=== PATIENT | female | born 2000 | race Caucasian/White ===

== ENCOUNTER 2021-01-24 14:02 | Inpatient (IN) ==
[2021-01-24] MEDS ORDERED: NALOXONE HCL 0.4 MG/1 ML VIAL/CARP IV STA (14:08)
[2021-01-24] MEDS ORDERED: RAPID SEQUENCE INDUCTION BAG ONE (14:11)
[2021-01-24] MEDS ORDERED: HALOPERIDOL LACTATE 5 MG/ML 1 ML VIAL ONE (14:15)
[2021-01-24] MEDS ORDERED: SODIUM CHLORIDE 0.9% 1000ML 2,000 ML IV SCH (14:15)
[2021-01-24] MEDS ORDERED: LORazepam 2 MG/4 ML VIAL ONE (14:15)
[2021-01-24] MEDS ORDERED: LORazepam 2 MG/4 ML VIAL IV STA ×2 (14:21→14:29)
[2021-01-24] MEDS ORDERED: BENZTROPINE MESYLATE 1 MG/ML 2 ML AMP IV STA (14:21)
[2021-01-24 14:41] LABS: Basophils # (auto) 0.01 K/uL (0-0.2); Basophils % (auto) 0.1 %; Eosinophils # (auto) 0.03 K/uL (0-0.5); Eosinophils % (auto) 0.4 %; Hematocrit (blood only) 40.2 % (37-47); Immature Granulocytes # (auto) 0.01 K/uL (0.00-0.02); Immature Granulocytes % (auto) 0.1 %; Lymphocytes # (auto) 2.32 K/uL (1.2-3.4); Lymphocytes % (auto) 31.6 %; Mean Corpuscular Hemoglobin 28.9 pg (25-34); Mean Corpuscular Hgb Conc 34.8 g/dL (32-36); Mean Corpuscular Volume 82.9 fL (80-100); Mean Platelet Volume 10.9 fL (7.4-10.4); Monocytes # (auto) 0.39 K/uL (0.11-0.59); Monocytes % (auto) 5.3 %; Neutrophils # (auto) 4.59 K/uL (1.4-6.5); Neutrophils % (auto) 62.5 %; Platelet Count 233 K/uL (130-400); RDW Coefficient of Variation 11.9 % (11.5-14.5); Red Blood Count 4.85 M/uL (4.2-5.4); White Blood Count 7.35 K/uL (4.8-10.8)
[2021-01-24] MEDS ORDERED: HALOPERIDOL LACTATE 5 MG/ML 1 ML VIAL IV STA (14:41)
--- NOTE | 2021-01-24 14:56 | Electrocardiogram Report ---
Test Reason : Blood Pressure : / mmHG Vent. Rate : 155 BPM Atrial Rate : 155 BPM P-R Int : 138 ms QRS Dur : 076 ms QT Int : 244 ms P-R-T Axes : 058 075 045 degrees QTc Int : 392 ms Sinus tachycardia Otherwise normal ECG No previous ECGs available Confirmed by Festus Mosley ([id number]) on 01/24/2021 2:56:07 PM Referred By: ED Confirmed By:Favio Mosley
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
[2021-01-24 15:21] LABS: Appearance Urine Clear (Clear); Bacteria Urine Automated Negative (Negative); Bilirubin Urine Negative (Negative); Blood Urine 3+ (Negative); Cast Urine Automated 0 /lpf (0-5); Color Urine Yellow; Epithelial Cell Urine Auto 20-30 /lpf (0-5); Glucose Urine UA Negative (Negative); Ketones Urine Negative (Negative); Leukocyte Esterase Urine Negative (Negative); Nitrite Urine Negative (Negative); Protein Urine Negative (Negative); RBC Urine Automated >30 /hpf (0-4); Specific Gravity Urine 1.015 (1.000-1.030); Urobilinogen Urine Negative (Negative)
[2021-01-24 15:31] LABS: Acetaminophen < 2 ug/ml (10-30)
[2021-01-24 15:32] LABS: Salicylate < 1.7 mg/dl (2.8-20)
[2021-01-24 15:42] LABS: Alanine Aminotransferase 16 U/L (12-78); Albumin Level 3.8 gm/dl (3.4-5.0); Alkaline Phosphatase 56 U/L (45-117); Aspartate Aminotransferase 10 U/L (15-37); BUN Creatinine Ratio 8.2 (10-20); Bilirubin,Total 0.4 mg/dl (0.2-1); Blood Urea Nitrogen 7 mg/dl (7-18); Calcium 9.4 mg/dl (8.5-10.1); Carbon Dioxide 23 mmol/L (21-32); Chloride 109 mmol/L (98-107); Creatine Kinase 147 U/L (26-192); Creatinine Clr Calc Pharmacy 107.5 ml/min; Est GFR (African American) 110.4; Est GFR (Non-African American) 95.3; Globulin 3.8 gm/dl (2.5-4.0); Glucose 123 mg/dl (70-99); Magnesium 2.1 mg/dl (1.8-2.4); Potassium 3.9 mmol/L (3.5-5.1); Sodium 142 mmol/L (136-145); Total Protein 7.6 gm/dl (6.4-8.2); Troponin I < 0.015 ng/ml (0-0.045)
[2021-01-24 15:47] LABS: Amphetamines+Metham, Urine Neg (Neg); Barbiturates, Urine Neg (Neg); Benzodiazepine, Urine Neg (Neg); Cocaine, Urine Neg (Neg); MDMA (Ecstacy), Urine Neg (Neg); Methadone, Urine Neg (Neg); Opiate, Urine Neg (Neg); Phencyclidine, Urine Neg (Neg)
[2021-01-24 15:48] LABS: Pregnancy Test, Serum Negative (Negative)
[2021-01-24] MEDS ORDERED: OPTIRAY 320 100ml IV ONE (15:52)
--- NOTE | 2021-01-24 16:09 | CT Scan Report ---
CT OF THE HEAD WITHOUT CONTRAST CLINICAL HISTORY: Altered mental status. COMPARISON STUDY: Head CT June 27, 2019. MRI of the brain June 28, 2019. TECHNIQUE: Helical axial images of the head were obtained without IV contrast. Automated exposure con trol was utilized for the study. A dose lowering technique was utilized adhering to the principles o f ALARA. FINDINGS: No acute intracranial hemorrhage, midline shift or mass effect is present. The ventricular system is unremarkable. The basal cisterns are patent. No extra-axial collections are present. There are no findings to suggest acute dural sinus thrombosis or acute territorial infarct. No significant calvarial abnormalities are present. There is no calvarial fracture. Visualized portions of the sinus es and mastoid air cells are clear. IMPRESSION: No acute intracranial findings. ACT 112: Negative or not required by law. Electronically signed by: Chava Ybarra M.D. 01/24/2021 4:04 PM
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
[2021-01-24 16:32] LABS: Influenza A virus by PCR Negative (Neg); Influenza B virus by PCR Negative (Neg); RSV by PCR Negative (Neg); SARS CoV2 RNA(COVID-19) InHosp NEGATIVE (Negative)
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
[2021-01-25] MEDS ORDERED: ACETAMINOPHEN 1000 MG/100 ML IV IV STA (16:08)
[2021-01-25] MEDS ORDERED: SODIUM CHLORIDE 0.9% 1000ML 500 ML IV ONE ×2 (16:08→19:19)
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
[2021-01-25 19:43] LABS: Basophils # (auto) 0.01 K/uL (0-0.2); Basophils % (auto) 0.1 %; Eosinophils # (auto) 0.05 K/uL (0-0.5); Eosinophils % (auto) 0.4 %; Hemoglobin 13.2 g/dL (12.0-16.0); Immature Granulocytes # (auto) 0.02 K/uL (0.00-0.02); Immature Granulocytes % (auto) 0.2 %; Lymphocytes # (auto) 1.68 K/uL (1.2-3.4); Lymphocytes % (auto) 14.2 %; Mean Corpuscular Hgb Conc 35.7 g/dL (32-36); Mean Corpuscular Volume 84.1 fL (80-100); Mean Platelet Volume 10.3 fL (7.4-10.4); Monocytes # (auto) 0.89 K/uL (0.11-0.59); Monocytes % (auto) 7.5 %; Neutrophils # (auto) 9.16 K/uL (1.4-6.5); Neutrophils % (auto) 77.6 %; Platelet Count 220 K/uL (130-400); RDW Coefficient of Variation 12.3 % (11.5-14.5); RDW Standard Deviation 37.8 fL (36.4-46.3); White Blood Count 11.81 K/uL (4.8-10.8)
[2021-01-25 20:05] LABS: Albumin Level 3.4 gm/dl (3.4-5.0); BUN Creatinine Ratio 8.4 (10-20); Calcium 8.8 mg/dl (8.5-10.1); Creatinine Clr Calc Pharmacy 103.9 ml/min; Est GFR (Non-African American) 91.5; Potassium 3.7 mmol/L (3.5-5.1)
[2021-01-25] MEDS ORDERED: ONDANSETRON INJ 2 MG/ML 2 ML VIAL IV STA (20:06)
[2021-01-25 20:08] LABS: Bilirubin,Total 0.5 mg/dl (0.2-1); Globulin 3.5 gm/dl (2.5-4.0); Total Protein 6.9 gm/dl (6.4-8.2)
[2021-01-25] MEDS ORDERED: ONDANSETRON INJ 2 MG/ML 2 ML VIAL ONE (20:08)
[2021-01-25] MEDS: LACTATED RINGER'S 1,000 ML IV SCH (22:06)
[2021-01-26] MEDS ORDERED: ACETAMINOPHEN 325 MG TAB PO PRN (06:38)
[2021-01-26] MEDS: LACTATED RINGER'S 1,000 ML IV SCH ×2 (08:06→08:07)
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
--- NOTE | 2021-01-26 12:16 | Electrocardiogram Report ---
Test Reason : Blood Pressure : / mmHG Vent. Rate : 105 BPM Atrial Rate : 105 BPM P-R Int : 206 ms QRS Dur : 080 ms QT Int : 318 ms P-R-T Axes : 069 079 055 degrees QTc Int : 420 ms Sinus tachycardia Otherwise normal ECG When compared with ECG of 24-JAN-2021 14:08, No significant change was found Confirmed by Festus Mosley ([id number]) on 01/26/2021 12:16:39 PM Referred By: REFERRED SELF Confirmed By:Favio Mosley
--- NOTE | 2021-01-26 12:48 | Electroencephalogram ---
EEG Procedure Note Date of Service January 26, 2021 Start / End Times Start Time: 11:39 AM End Time: 11:58 AM Referring Physician Aj Sloan MD History History of seizure-like episodes, change in mental status, history of concussion Home Medication List Medication Instructions Recorded Confirmed Type norethindrone-e.estradiol-iron [Lo 1 tab PO DAILY 06/27/19 01/24/21 History Loestrin Fe] erenumab-aooe [Aimovig 140 mg SUBCUT MONTHLY 01/24/21 01/24/21 History Autoinjector] levetiracetam [Keppra] 500 mg PO BID 01/24/21 01/24/21 History lorazepam 1 mg PO DAILY PRN 01/24/21 01/24/21 History prazosin 1 mg PO BID 01/24/21 01/24/21 History quetiapine [Seroquel] 25 mg PO BID PRN 01/24/21 01/24/21 History Inpatient Medication List Acetaminophen (Acetaminophen 325 Mg Tab) 650 mg PO Q6H PRN PRN Reason: headache, pain Stop: 02/25/21 06:37 Last Admin: 01/26/21 07:06 Dose: 650 mg Documented by: [id number] Discontinued Medications Acetaminophen (Acetaminophen 1000 Mg/100 Ml Iv) 1,000 mg IV NOW STA Stop: 01/25/21 16:09 Last Admin: 01/25/21 16:45 Dose: 1,000 mg Documented by: [id number] Benztropine Mesylate (Benztropine Mesylate 1 Mg/Ml 2 Ml Amp) 2 mg IV NOW STA Stop: 01/24/21 14:22 Last Admin: 01/24/21 14:43 Dose: 2 mg Documented by: [id number] Haloperidol Lactate (Haloperidol Lactate 5 Mg/Ml 1 Ml Vial) Confirm Administered Dose 10 mg .ROUTE .STK-MED ONE Stop: 01/24/21 14:16 Last Admin: 01/24/21 14:39 Dose: 5 mg Documented by: [id number] Haloperidol Lactate (Haloperidol Lactate 5 Mg/Ml 1 Ml Vial) 5 mg IV NOW STA Stop: 01/24/21 14:42 Last Admin: 01/24/21 15:13 Dose: Not Given Documented by: [id number] Sodium Chloride (Nss 1000ml) 2,000 mls @ 999 mls/hr IV .Q2H1M ABBY Stop: 01/24/21 16:15 Last Infusion: 01/24/21 15:28 Dose: 0 mls/hr Documented by: [id number] Admin: 01/24/21 14:26 Dose: 999 mls/hr Documented by: [id number] Lorazepam (Ativan) 2 mg in 4 mls @ 4 mls/min IV UD STA Stop: 01/24/21 14:22 Last Admin: 01/24/21 14:23 Dose: 4 mls/min Documented by: [id number] Sodium Chloride (Nss 1000ml) 500 mls @ 999 mls/hr IV .Q31M ONE Stop: 01/25/21 16:38 Last Infusion: 01/25/21 18:38 Dose: 0 mls/hr Documented by: [id number] Admin: 01/25/21 17:01 Dose: 999 mls/hr Documented by: [id number] Lactated Ringer's (Lr) 1,000 mls @ 150 mls/hr IV .Q6H40M [facility] Stop: 02/24/21 17:14 Last Admin: 01/26/21 08:07 Dose: Not Given Documented by: [id number] Admin: 01/26/21 08:06 Dose: Not Given Documented by: [id number] Infusion: 01/26/21 08:06 Dose: 0 mls/hr Documented by: [id number] Admin: 01/25/21 22:06 Dose: 150 mls/hr Documented by: [id number] Sodium Chloride (Nss 1000ml) 500 mls @ 999 mls/hr IV .Q31M ONE Stop: 01/25/21 19:49 Last Infusion: 01/25/21 20:12 Dose: 0 mls/hr Documented by: [id number] Admin: 01/25/21 19:36 Dose: 999 mls/hr Documented by: [id number] Ioversol (Optiray 320 100ml) 90 ml IV ONCE ONE Stop: 01/24/21 15:53 Last Admin: 01/24/21 15:53 Dose: 90 ml Documented by: [id number] Lorazepam (Lorazepam 2 Mg/4 Ml Vial) Confirm Administered Dose 2 mg .ROUTE .STK- MED ONE Stop: 01/24/21 14:16 Last Admin: 01/24/21 14:46 Dose: Not Given Documented by: [id number] Miscellaneous (Rapid Sequence Induction Bag) Confirm Administered Dose 1 ea .ROUTE .STK-MED ONE Stop: 01/24/21 14:12 Last Admin: 01/24/21 18:24 Dose: Not Given Documented by: [id number] Naloxone HCl (Naloxone Hcl 0.4 Mg/1 Ml Vial/Carp) 0.4 mg IV NOW STA Stop: 01/24/21 14:09 Last Admin: 01/24/21 18:24 Dose: Not Given Documented by: [id number] Ondansetron HCl (Ondansetron Inj 2 Mg/Ml 2 Ml Vial) 4 mg IV NOW STA Stop: 01/25/21 20:07 Last Admin: 01/25/21 20:12 Dose: 4 mg Documented by: [id number] Ondansetron HCl (Ondansetron Inj 2 Mg/Ml 2 Ml Vial) Confirm Administered Dose 4 mg .ROUTE .STK-MED ONE Stop: 01/25/21 20:09 Last Admin: 01/25/21 20:12 Dose: Not Given Documented by: [id number] Description This is a 21 electrode EEG with a single channel dedicated to limited EKG. The electrodes were placed in accordance with the International 10-20 system. There is a posterior dominant rhythm of 12 Hz which is symmetrically distributed and attenuates with eye opening. There is a normal anterior to posterior organization. Photic stimulation is unremarkable. Hyperventilation is not performed. There is frequent movement artifact. There is a symmetric frontal beta rhythm. There is no focal or lateralized slowing. No epileptiform abnormalities observed. Interpretation Normal-appearing awake/drowsy EEG. There is frequent movement artifact although the study is adequate for interpretation. A normal EEG does not completely exclude a diagnosis of epilepsy. Further clinical correlation may be needed. [facility] EEG Procedure Codes Indication for Procedure (1) Seizure: (2) Altered mental status: Neurology Neurology: [id number] EEG include record awake & drowsy
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
[2021-01-26] MEDS ORDERED: LORazepam 2 MG/ML VIAL (IM USE) ONE (18:39)
[2021-01-26] MEDS ORDERED: HALOPERIDOL LACTATE 5 MG/ML 1 ML VIAL ONE (18:39)
[2021-01-26] MEDS ORDERED: LORazepam 2 MG/ML VIAL (IM USE) IM STA (19:31)
[2021-01-26] MEDS ORDERED: HALOPERIDOL LACTATE 5 MG/ML 1 ML VIAL IM STA (19:31)
--- NOTE | 2021-01-26 21:31 | XRay Report ---
BONY ORBITS 2 VIEWS CLINICAL HISTORY: MRI clearance. FINDINGS: AP and crosstable lateral views of the bony orbits are obtained. No prior studies are avail able for comparison at the time of dictation. There is no radiodense/metallic foreign body seen in th e region of the bony orbits. The bony orbits are intact as imaged. The visualized paranasal sinuses a nd the mastoid air cells appear clear. The imaged calvarium appears intact. IMPRESSION: There is no radiodense/metallic foreign body seen in the region of the bony orbits. ACT 112: Negative or not required by law. Electronically signed by: Spenser Pearl M.D. 01/26/2021 9:30 PM
[2021-01-27] MEDS ORDERED: GADOBUTROL 65ML VIAL IV ONE (02:51)
--- NOTE | 2021-01-27 08:12 | Magnetic Resonance Report ---
Brain MRI WITH AND WITHOUT CONTRAST HISTORY: change in mental status, h/o seizure like episodes TECHNIQUE: Multiplanar multisequence MRI of the brain was performed both before and after the intrave nous administration of contrast. COMPARISON STUDY: Head CT 01/25/2021. FINDINGS: There are no areas of restricted diffusion to suggest acute infarction. The midline structu res are intact. The paranasal sinuses are clear. The mastoid air cells are clear. The ventricles and sulci are within normal limits for age. There is no mass, hematoma, midline shift. The major vascular flow-voids at the skull base are well maintained. Postcontrast sequences show no areas of abnormal e nhancement. The temporal lobes are symmetric. IMPRESSION: No acute intracranial abnormality. ACT 112: Negative or not required by law. Electronically signed by: Ismael Tejeda M.D. 01/27/2021 8:11 AM
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
[2021-01-27 11:43] LABS: Albumin Level 3.4 gm/dl (3.4-5.0); BUN Creatinine Ratio 10.2 (10-20); Calcium 8.8 mg/dl (8.5-10.1); Creatinine Clr Calc Pharmacy 102.6 ml/min; Est GFR (African American) 108.9; Potassium 3.9 mmol/L (3.5-5.1)
[2021-01-27 11:46] LABS: Albumin Globulin Ratio 0.9 (0.9-2); Bilirubin,Total 0.5 mg/dl (0.2-1); Total Protein 7.4 gm/dl (6.4-8.2)
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
[2021-01-29 15:47] LABS: Synthetic Cannabinoid Qual Ur NEGATIVE (Negative)
== END 2021-01-27 18:42 | DRG 917 ==
LOC: ED 14:02 → 2W 01-25 18:39 → SUATTDRO 01-25 18:39 → 2W 01-25 21:13

== ENCOUNTER 2021-01-27 19:07 | Inpatient (IN) ==
[2021-01-27] MEDS ORDERED: MAGNESIUM HYDROXIDE SUSP 30 ML UDC PO PRN (19:29)
[2021-01-27] MEDS ORDERED: ALUMINUM/MAGNESIUM SUSP 30 ML UDC PO PRN (19:29)
[2021-01-27] MEDS ORDERED: hydrOXYzine HCl 25 MG TAB PO PRN ×2 (19:29)
[2021-01-27] MEDS ORDERED: SODIUM CHLORIDE 0.65% NA SOLN 45 ML (OCEAN) PRN (19:29)
[2021-01-27] MEDS ORDERED: BISMUTH SUBSALICYLATE LIQD 236 ML PO PRN (19:29)
[2021-01-27] MEDS ORDERED: ACETAMINOPHEN 325 MG TAB PO PRN (19:29)
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
[2021-01-28] MEDS: lamoTRIgine 25 MG TAB PO SCH (21:10)
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
[2021-01-29] MEDS ORDERED: DESTROY THIS MEDICATION ONE (11:48)
[2021-01-29] MEDS: lamoTRIgine 25 MG TAB PO SCH (20:53)
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
== END 2021-01-30 12:40 | disposition home or self-care (01) | DRG 885 ==
LOC: 3S 19:07